=== PATIENT | female | born 1965 | race Caucasian/White ===

== ENCOUNTER → 2016-11-27 | Outpatient (CLI) | payer OTHER ==
[~2016-11-27] MED LIST: ACIPHEX20 MG PO; AUGMENTIN 875 M1 TAB PO; AUGMENTIN 875875 MG PO; BACTROBAN OINT22 GM PO; CARAFATE1 G1 PO; CIPRO500 MG PO; FLAGYL500 MG PO; FLONASE 0.05% 121 EA NAS; TOPCARE OMEPRAZ20 MG PO; TRAMADOL HCL50 MG PO; VIBRAMYCIN100 MG PO; VICODIN ES 7501 TAB PO; ZOFRAN4 MG PO; ZYRTEC10 MG PO
[2016-11-27 08:23] LABS: HEMATOCRIT 43.6 % (37.0-47.0); HEMOGLOBIN 14.4 g/dl (12.0-16.0); MEAN CELL VOLUME 90.5 fl (81.0-99.0); MEAN CORPUSCULAR HGB 29.9 pg (27.0-31.0); RED BLOOD COUNT 4.82 10*6/uL (4.10-5.10); RED CELL DISTRI WIDTH 12.1 % (0-14.5)
[2016-11-27 08:27] LABS: ALBUMIN 4.3 gm/dl (3.1-4.5); BUN 12 mg/dl (7-24); CARBON DIOXIDE 28 mmol/L (21-32); CHLORIDE 107 mmol/L (98-107); EST GLOM FILT AFRICAN AMERICAN > 60 ml/min; GLUCOSE 101 mg/dL (65-99); POTASSIUM 3.9 mmol/L (3.5-5.1); SODIUM 143 mmol/L (136-145)
[2016-11-27 08:38] LABS: ALKALINE PHOSPHATASE 91 U/L (45-117); BILIRUBIN, TOTAL 0.8 mg/dl (0.2-1.0); CHOLESTEROL 200 mg/dL (<200); HDL CHOLESTEROL 70 mg/dl (40-60); LDL CHOLESTEROL 107 mg/dL (9-159); SGOT/AST 18 IU/L (3-35); SGPT/ALT 25 U/L (12-78); TOTAL PROTEIN 7.6 gm/dL (6.4-8.2); TRIGLYCERIDES 116 mg/dl (<150); VLDL CHOLESTEROL 23 mg/dL (6-40)
[2016-11-27 09:59] LABS: VITAMIN D, 25-HYDROXY 11.8 ng/mL (30-100)
== END | disposition home or self-care (01) ==
LOC: LAB 07:22
PROVIDERS: Family Medicine
DX: F41.1 Generalized anxiety disorder (principal); E74.00 Glycogen storage disease, unspecified; K21.9 Gastro-esophageal reflux disease without esophagitis; R10.9 Unspecified abdominal pain; R53.83 Other fatigue; E78.00 Pure hypercholesterolemia, unspecified; R63.5 Abnormal weight gain

== ENCOUNTER 2017-04-08 13:04 | Emergency (ER) | payer OTHER ==
[~2017-04-08] VITALS: Wt 90.7 kg
[2017-04-08 13:22] VITALS: BP 135/69
[2017-04-08] MEDS ORDERED: DEXILANT60 M1 PO (13:22)
[2017-04-08] MEDS ORDERED: CLARITIN10 MG PO (13:23)
[2017-04-08] MEDS ORDERED: MONTELUKAST SOD10 MG PO (13:23)
[2017-04-08] MEDS ORDERED: VITAMIN D50000 UNIT PO (13:24)
[2017-04-08] MEDS ORDERED: RANITIDINE HCL150 M1 PO (13:24)
[2017-04-08] MEDS ORDERED: CYCLOBENZAPRINE10 MG PO (15:08)
[2017-04-08] MEDS ORDERED: MEDROL DOSEPAK4 MG PO (15:08)
[2017-04-08] MEDS ORDERED: NAPROSYN500 MG PO (15:08)
== END 2017-04-08 14:59 | disposition home or self-care (01) ==
LOC: ED 13:04
DX: M25.462 Effusion, left knee (principal); M54.30 Sciatica, unspecified side; M25.561 Pain in right knee; F17.200 Nicotine dependence, unspecified, uncomplicated; Z88.2 Allergy status to sulfonamides; Z88.1 Allergy status to other antibiotic agents; Z79.899 Other long term (current) drug therapy

== ENCOUNTER 2018-06-06 16:08 | Emergency (ER) | payer OTHER ==
[~2018-06-06] VITALS: Ht 172.7 cm; Wt 90.7 kg
[~2018-06-06 16:08] MED LIST changes: +CLARITIN10 MG PO; +CYCLOBENZAPRINE10 MG PO; +DEXILANT60 M1 PO; +MEDROL DOSEPAK4 MG PO; +MONTELUKAST SOD10 MG PO; +NAPROSYN500 MG PO; +RANITIDINE HCL150 M1 PO; +VITAMIN D50000 UNIT PO
[2018-06-06 16:11] VITALS: BP 175/86
[2018-06-06] MEDS ORDERED: CLINDAMYCIN150 MG PO (16:22)
== END 2018-06-06 16:51 | disposition home or self-care (01) ==
LOC: ED 16:08
DX: J34.0 Abscess, furuncle and carbuncle of nose (principal); R03.0 Elevated blood-pressure reading, without diagnosis of hypertension; Z88.2 Allergy status to sulfonamides; Z88.1 Allergy status to other antibiotic agents; Z79.1 Long term (current) use of non-steroidal anti-inflammatories (NSAID); Z79.899 Other long term (current) drug therapy; Z90.710 Acquired absence of both cervix and uterus

== ENCOUNTER 2019-03-02 08:40 | Emergency (ER) | payer OTHER ==
[~2019-03-02] VITALS: Wt 90.3 kg
[~2019-03-02 08:40] MED LIST changes: +CLINDAMYCIN150 MG PO
[2019-03-02 08:41] VITALS: BP 141/77
[2019-03-02 08:57] LABS: BILIRUBIN 1+ (NEGATIVE); BLOOD 3+ (NEGATIVE); CLARITY TURBID (CLEAR); COLOR BROWN (YELLOW); GLUCOSE NEGATIVE (NEGATIVE); KETONE TRACE (NEGATIVE); LEUKO ESTERASE 2+ (NEGATIVE); NITRITE NEGATIVE (NEGATIVE); PH 5.5 (5.0-9.0); SPECIFIC GRAVITY >= 1.030 (1.005-1.030); UROBILINOGEN 0.2 E.U./dl (0.2-1.0)
[2019-03-02 09:08] LABS: BACTERIA 4+; RBC TNTC rbc/hpf (0-2); WBC TNTC wbc/hpf (0-5)
[2019-03-02] MEDS ORDERED: CEFUROXIME AXE500 MG PO (09:22)
== END 2019-03-02 09:30 | disposition home or self-care (01) ==
LOC: ED 08:40
PROVIDERS: Emergency Medicine
DX: N39.0 Urinary tract infection, site not specified (principal); Z79.899 Other long term (current) drug therapy; Z88.1 Allergy status to other antibiotic agents; Z88.2 Allergy status to sulfonamides; Z98.890 Other specified postprocedural states; Z90.710 Acquired absence of both cervix and uterus; Z98.51 Tubal ligation status

== ENCOUNTER → 2021-02-26 | Outpatient (CLI) | payer OTHER ==
[~2021-02-26] MED LIST changes: +CEFUROXIME AXE500 MG PO
[2021-02-26 07:45] LABS: BASO % 0.6 % (0.0-1.0); EOS # 0.1 10*3/uL (0.0-0.4); EOS % 2.6 % (1.0-4.0); HEMATOCRIT 44.5 % (37.0-47.0); LYMPH # 1.7 10*3/uL (1.3-4.4); LYMPH % 33.7 % (27.0-41.0); MEAN CELL VOLUME 92.3 fl (81.0-99.0); MEAN CORPUSCULAR HGB 29.9 pg (27.0-31.0); MEAN CORPUSCULAR HGB CONC 32.4 g/dl (33.0-37.0); MEAN PLATELET VOLUME 11.2 fl (9.6-12.3); MONO # 0.5 10*3/uL (0.1-1.0); MONO % 10.2 % (3.0-9.0); NEUT # 2.6 10*3/uL (2.3-7.9); NEUT % 52.7 % (47.0-73.0); PLATELET COUNT AUTOMATED 186 10*3/uL (130-400); RED BLOOD COUNT 4.82 10*6/uL (4.10-5.10); RED CELL DISTRI WIDTH 12.6 % (0-14.5)
[2021-02-26 08:01] LABS: ALBUMIN 3.9 gm/dl (3.1-4.5); ALKALINE PHOSPHATASE 84 U/L (45-117); BUN 24 mg/dl (7-24); CHLORIDE 115 mmol/L (98-107); CREATININE 0.66 mg/dL (0.55-1.02); SGOT/AST 18 IU/L (3-35); SGPT/ALT 29 U/L (12-78); SODIUM 139 mmol/L (136-145); TOTAL PROTEIN 7.1 gm/dL (6.4-8.2)
== END | disposition home or self-care (01) ==
LOC: LAB 07:22
PROVIDERS: Student in an Organized Health Care Education/Training Program; ATTEND Family Medicine
DX: Z00.01 Encounter for general adult medical examination with abnormal findings (principal)

== ENCOUNTER 2022-05-05 13:05 | Emergency (ER) | payer OTHER ==
[~2022-05-05] VITALS: Wt 65.3 kg
[2022-05-05 13:17] VITALS: BP 151/77
[2022-05-05] MEDS ORDERED: PREDNISONE50 MG PO (14:57)
== END 2022-05-05 15:01 | disposition home or self-care (01) ==
LOC: ED 13:05
DX: M25.561 Pain in right knee (principal); Z88.1 Allergy status to other antibiotic agents; Z79.899 Other long term (current) drug therapy; Z90.710 Acquired absence of both cervix and uterus; Z98.890 Other specified postprocedural states; Z98.51 Tubal ligation status; W18.40XA Slipping, tripping and stumbling without falling, unspecified, initial encounter; Y93.89 Activity, other specified; Y92.89 Other specified places as the place of occurrence of the external cause; Y99.8 Other external cause status